=== PATIENT | male | born 1975 | race Caucasian/White ===

== ENCOUNTER 2021-05-02 07:28 | Day surgery (SDC) | payer BC ==
[~2021-05-02] VITALS: Ht 188 cm; Wt 140.9 kg
[~2021-05-02 07:28] MED LIST: COZAAR100 MG PO; LEVOTHYROXINE25 MC1 PO
--- NOTE | 2021-05-02 12:18 | NUR ---
05/02/21 1218 Jessie Marcelo 1102 PT ARRIVED IN PACU SLEEPY WITH NO C/O'S. 1115 TALKING TO STAFF. 1130 DR AT BEDSIDE. ALL QUESTIONS ANSWERED. 1145 DC INSTRUCTIONS GIVEN. 1155 LEFT VIA W/C. INSTRUCTIONS GIVEN TO SISTER AT CAR.
--- NOTE | 2021-05-02 12:44 | NUR ---
LE 1230 PT CALLED DS AND RX GIVEN TO PT HAD ANOTHER PT'S NAME ON IT. 1240 PT RETURNED TO HOSPITAL AND GAVE RX TO RN IN DS. PACU NURSE GOT NEW RX WITH CORRECT PT INFO AND GAVE TO PT AT CAR.
--- NOTE | 2021-05-03 13:17 | OR ---
[facility] [address] [place], [place] [address] Signed DATE OF OPERATION: 05/02/2021 SURGEON: Andria Pelaez MD PREOPERATIVE DIAGNOSES: 1. Giant posterior superior thoracic sebaceous cyst (greater than 4 cm). 2. Additional small cyst superior posterior thorax (less than 2 cm). PROCEDURE: 1. Excision of giant posterior thoracic sebaceous cyst. 2. Excision of smaller posterior thoracic sebaceous cyst, separate incision. ANESTHESIA: Local with monitored anesthesia care. Da Contreras CRNA (Marcaine 0.25% with epinephrine). INDICATION: This very large 45-year-old white man has a soft tissue mass in the superior posterior thorax. He is a patient of Dr. Flak. The lesion is clearly a sebaceous cyst with 2 separate punctum. Additionally noted was a smaller nodule more centrally located not far from the original lesion, which has a comedo lesion associated with it. Excision of both lesions is indicated at this time. The patient understands the risks of bleeding, infection, recurrence, and other unforeseen complications and wished to proceed. FINDINGS: The largest lesion was greater than 4 cm in aggregate, it was excised completely. The smaller lesion was less than 2 cm and it was excised through a separate incision. DESCRIPTION OF PROCEDURE: The patient was brought to the operating room, placed in lateral position. The central posterior thorax was clipped and prepared with a chlorhexidine solution and draped sterilely. The larger lesion measured about 4 cm in size, was marked and smaller lesion medial and inferior to that was additionally identified, this was not apparent previously. 0.25% Marcaine with epinephrine was injected locally in a field block for both lesions. Elliptical incision was made, oriented largely superiorly . Wide excision was undertaken using sharp dissection initially and ultimately electrocautery. Excision was taken down to the posterior thoracic fascia. The largest lesion measured about 4 cm in size. The smaller lesion was incised with a #15 blade and excised separately and it was far larger than expected, but currently less than 2 cm in aggregate. The two separate incisions were closed with layers of interrupted 2-0 Vicryl Electronically Signed By: ANDRIA PELAEZ MD 05/03/21 1317 PATIENT NAME: MEET PAGE OPERATIVE REPORT DATE OF : 79 REPORT #: [id number] PHYSICIAN: ANDRIA PELAEZ MD PCP: DM FALK MD REPORT IS CONFIDENTIAL AND NOT TO BE RELEASED WITHOUT AUTHORIZATION [address] [address] Signed and a running subcuticular 3-0 Vicryl. Steri-Strips were applied as well as an Acticoat dressing. The patient tolerated procedure well. Blood losswas less than 10 mL. Sponge, needle, and instrument counts were reported as correct x3. MD MARTHA Clinton/TAISHAL /[id number] cc: Dm Falk MD Copies: ~ Electronically Signed By: ANDRIA PELAEZ MD 05/03/21 1317 PATIENT NAME: MEET PAGE OPERATIVE REPORT DATE OF : 79 REPORT #: [id number] PHYSICIAN: ANDRIA PELAEZ MD PCP: DM FALK MD REPORT IS CONFIDENTIAL AND NOT TO BE RELEASED WITHOUT AUTHORIZATION
== END 2021-05-02 11:55 | disposition home or self-care (01) ==
LOC: DS 07:28
PROVIDERS: ATTEND Surgery
PROC: 0HB5XZZ Excision of Chest Skin, External Approach (ICD-10-PCS; principal; 2021-05-02 08:45)
DX: L72.0 Epidermal cyst (principal); I10 Essential (primary) hypertension; E03.9 Hypothyroidism, unspecified; E66.01 Morbid (severe) obesity due to excess calories; E11.9 Type 2 diabetes mellitus without complications; F17.200 Nicotine dependence, unspecified, uncomplicated; K21.9 Gastro-esophageal reflux disease without esophagitis; E78.00 Pure hypercholesterolemia, unspecified; Z68.41 Body mass index [BMI] 40.0-44.9, adult
CPT/HCPCS: 00400; J0690; J1644; J2250; J2704

== ENCOUNTER 2025-07-07 09:08 | Day surgery (SDC) | payer BC ==
[~2025-07-07] VITALS: Ht 188 cm; Wt 159.0 kg
[~2025-07-07 09:08] MED LIST changes: +IBLOOD GLUCOSE TEST STRIP 1 EA TEST VI PRN; +LACTATED RINGER'S 1,000 ML IV SCH; +LIDOCAINE HCL 1% 5 ML SDV INJ ONE; +PIOGLITAZONE HC30 MG PO; +PROCARDIA XL30 MG PO
[2025-07-07 09:32] VITALS: BP 139/92
[2025-07-07 09:47] LABS: BASOPHILS 1.0 % (0.2-1.2); EOSINOPHILS 2.3 % (0.8-7.0); LYMPHOCYTES 24.4 % (21.8-53.1); MCH 27.8 PG (25.7-32.2); MCHC 33.2 g/dL (32.3-36.5); MCV 83.6 fL (79.0-92.2); MONOCYTES 10.8 % (5.3-12.2); NEUTROPHILS 61.4 % (34.0-67.9); RBC 5.98 M/uL (4.63-6.08)
[2025-07-07 10:04] LABS: ALT (SGPT) 23.0 U/L (14-59); AST (SGOT) 26.0 U/L (15-37); GLOMERULAR FILTRATION RATE,EST 103.0 mL/min (>60); PROTEIN, TOTAL 7.2 g/dL (6.4-8.2); UREA NITROGEN 14.0 mg/dL (7-18)
[2025-07-07] MEDS ORDERED: LIDOCAINE HCL 2% 5 ML SDV ONE (11:07)
--- NOTE | 2025-07-07 11:49 | NUR ---
07/07/25 1149 Emma Barry 1140: PT ARRIVES TO PACU NON AROUSAL/NON REACTIVE. REPORT RECEIVED FROM MEDICAL ASSISTANT CARDIOLOGY AND MACHINE HEEL SEAT FITTER.
[2025-07-07 12:08] VITALS: BP 136/107
--- NOTE | 2025-07-08 06:07 | EKG ---
[facility] [address] [facility] [place] [address] Signed Sinus rhythm with frequent premature ventricular complexes Left axis deviation Inferior infarct , age undetermined Abnormal ECG When compared with ECG of 24-APR-2021 15:50, premature ventricular complexes are now present QRS duration has increased Inverted T waves have replaced nonspecific T wave abnormality in Lateral leads Confirmed by CHEN CHAVIS MD ([id number]) on 07/08/2025 6:06:59 AM Electronically Signed By: CHEN CHAVIS 07/08/25 0607 PATIENT NAME: MEET PAGE Electrocardiogram DATE OF : 79 PHYSICIAN: CHEN CHAVIS REPORT #: [id number] REPORT IS CONFIDENTIAL AND NOT TO BE RELEASED WITHOUT AUTHORIZATION
--- NOTE | 2025-07-08 08:08 | OR ---
[facility] [address] [place], [place] [address] Signed DATE OF OPERATION: 07/07/2025 SURGEON: Kiersten Flaherty DO PREOPERATIVE DIAGNOSIS: Colon cancer screening. POSTOPERATIVE DIAGNOSES: 1. Colon cancer screening with diverticulosis. 2. Polyp at 20 cm. PROCEDURE PERFORMED: Colonoscopy with polypectomy at 20 cm. ANESTHESIA: IV sedation. ESTIMATED BLOOD LOSS: None. DRAINS: None. COMPLICATIONS: None. DESCRIPTION OF PROCEDURE: The patient was brought to the GI lab, placed in supine position. After induction of IV sedation, the patient was placed in left lateral position, padded to the satisfaction of anesthesia. The Olympus video colonoscope was then introduced into the rectum and while under direct visualization and advancing, the scope was then advanced through the rectosigmoid, sigmoid colon, descending colon, transverse colon, ascending colon and into the cecum. The colon was insufflated and inspection of mucosal surfaces carried out. The scope was brought back into the ascending colon and the cecum were unremarkable. No intrinsic or extrinsic masses were appreciated. Scope was brought back into the transverse colon. No intrinsic or extrinsic masses were noted. Scope was brought back into the descending colon. No intrinsic or extrinsic masses were appreciated. The scope was then brought back into the sigmoid colon. At approximately 20 cm, a flat broad-based polyp was identified. Utilizing cold forceps, the polyp was biopsied and passed off the field for pathologic review. The remainder of sigmoid and Electronically Signed By: KIERSTEN FLAHERTY DO 07/08/25 0808 PATIENT NAME: MEET PAGE OPERATIVE REPORT DATE OF : 79 REPORT #: [id number] PHYSICIAN: KIERSTEN FLAHERTY DO PCP: KRYSTEN MONREAL PAC REPORT IS CONFIDENTIAL AND NOT TO BE RELEASED WITHOUT AUTHORIZATION [address] [place], [place] [address] Signed rectosigmoid were unremarkable. The colon was decompressed. Scope was withdrawn. The patient tolerated the procedure well. Kiersten Flaherty DO RS/TAISHAL /[id number] Copies: ~ Electronically Signed By: KIERSTEN FLAHERTY DO 07/08/25 0808 PATIENT NAME: MEET PAGE OPERATIVE REPORT DATE OF : 79 REPORT #: [id number] PHYSICIAN: KIERSTEN FLAHERTY DO PCP: KRYSTEN MONREAL PAC REPORT IS CONFIDENTIAL AND NOT TO BE RELEASED WITHOUT AUTHORIZATION
--- NOTE | 2025-07-09 16:17 | PATH ---
[facility] [address] [facility] [place], [place] [address] Signed SPECIMEN(S): A COLON POLYP, 20 CM SPECIMEN SOURCE: A. COLON POLYP, 20 CM CLINICAL HISTORY: Screening, polyp 20 cm FINAL PATHOLOGIC DIAGNOSIS: Colon polyp, 20 cm: - Hyperplastic polyp. JVR MICROSCOPIC EXAMINATION: Histologic sections of all submitted blocks are examined by light microscopy. These findings, together with the gross examination, support the pathologic diagnosis. GROSS DESCRIPTION: The specimen, labeled and designated "Afshin, colon polyp, 20 cm," is received in formalin and consists of one day soft tissue fragment, 0.2 cm. Entirely submitted in (A1). VB (under the direct supervision of a pathologist) The Gross Description was prepared using a voice recognition system. The report was reviewed for accuracy; however, sound-alike word errors, addition and/or deletions may occur. If there is any question about this report, please contact Client Services. ADDITIONAL NOTES: Immunohistochemical and/or in situ hybridization studies if performed in this case included appropriate positive controls that reacted as expected. This test was developed and its performance characteristics determined by [facility]. It has not been cleared or approved by the U.S. Food and Drug Administration. The FDA has determined that such clearance or approval is not necessary. This test is used for clinical purposes. It should not be regarded as investigational or for research. [facility] is certified under the Clinical Laboratory Improvement Amendments of 1988 (CLIA) as qualified to perform high complexity clinical laboratory testing. PATIENT NAME: MEET PAGE PATHOLOGY DATE OF : 79 REPORT #: [id number] PHYSICIAN: PILI NGUYEN PCP: KRYSTEN MONREAL PAC REPORT IS CONFIDENTIAL AND NOT TO BE RELEASED WITHOUT AUTHORIZATION [facility] [address] [place], [place] [address] Signed PERFORMING LABORATORY: Technical component was performed by [facility], [address] [place] [id number] (CLIA# [id number]). Professional interpretation was performed by [facility] [place] [facility] - [address] [place], [place] [address] [address] (CLIA#: [id number]). Diagnostician: Alex Roblero MD Pathologist Electronically Signed 07/09/2025 Copies: ~ PATIENT NAME: MEET PAGE PATHOLOGY DATE OF : 79 REPORT #: [id number] PHYSICIAN: PILI NGUYEN PCP: KRYSTEN MONREAL PAC REPORT IS CONFIDENTIAL AND NOT TO BE RELEASED WITHOUT AUTHORIZATION
== END 2025-07-07 12:18 | disposition home or self-care (01) ==
LOC: DS 09:08
PROVIDERS: Nurse Anesthetist, Certified Registered; ATTEND Surgery
PROC: 0DBN8ZX Excision of Sigmoid Colon, Via Natural or Artificial Opening Endoscopic, Diagnostic (ICD-10-PCS; principal; 2025-07-07 11:40)
DX: Z12.11 Encounter for screening for malignant neoplasm of colon (principal); K63.5 Polyp of colon; K57.30 Diverticulosis of large intestine without perforation or abscess without bleeding; I10 Essential (primary) hypertension; E78.5 Hyperlipidemia, unspecified; E11.9 Type 2 diabetes mellitus without complications; E03.9 Hypothyroidism, unspecified; E66.01 Morbid (severe) obesity due to excess calories; Z68.29 Body mass index [BMI] 29.0-29.9, adult; Z79.890 Hormone replacement therapy; Z79.84 Long term (current) use of oral hypoglycemic drugs; Z79.899 Other long term (current) drug therapy; Z88.8 Allergy status to other drugs, medicaments and biological substances; Z91.09 Other allergy status, other than to drugs and biological substances
CPT/HCPCS: 00812; 36415; 80053; 85025; 93005; 93010; J2003; J2704; J7121